=== PATIENT | female | born 1960 | race Caucasian/White ===

== ENCOUNTER 2019-06-21 19:07 | Emergency (ER) | payer BC ==
[2019-06-21] MEDS: LORAZEPAM 2 MG INJ IV (19:39)
[2019-06-21] MEDS: ONDANSETRON 4 MG INJ IV (19:39)
[2019-06-21] MEDS: KETOROLAC 15 MG INJ IV (19:39)
[2019-06-21] MEDS: SOD CHLORIDE 0.9% 1,000 ML IV (19:39)
[2019-06-21 19:52] LABS: ADD MAN DIFF? NO
[2019-06-21 19:57] LABS: BASOPHIL # 0.1 10^3/ul (0.0-0.1); BASOPHILS % 0.6 % (0.0-2.0); EOSINOPHILS # 0.2 10^3/ul (0.0-0.5); EOSINOPHILS % 2.1 % (0.0-7.0); HEMATOCRIT 34.7 % (37.0-47.0); HEMOGLOBIN 10.7 g/dl (12.0-16.0); LYMPHOCYTES % 29.7 % (15.0-51.0); MEAN CORPUSCULAR HEMOGLOBIN 27.6 pg (29.0-33.0); MEAN CORPUSCULAR HGB CONC 30.8 g/dl (32.0-37.0); MEAN CORPUSCULAR VOLUME 89.7 fl (82.0-101.0); MEAN PLATELET VOLUME 11.3 fl (7.4-10.4); MONOCYTE # 0.4 10^3/ul (0.3-0.9); MONOCYTES % 4.2 % (0.0-11.0); NEUTROPHIL # 6.4 10^3/ul (1.6-7.5); NEUTROPHILS % 62.9 % (39.0-77.0); PLATELET COUNT 399 10^3/UL (140-415); RED BLOOD COUNT 3.87 10^6/ul (4.20-5.40); RED CELL DISTRIBUTION WIDTH 16.1 % (11.5-14.5)
[2019-06-21 19:57] LABS: WHITE BLOOD COUNT 10.2 10^3/ul (4.8-10.8)
[2019-06-21 20:22] LABS: ANION GAP 13 (5-13); BLOOD UREA NITROGEN 13 mg/dl (7-20); CALCIUM 9.3 mg/dl (8.4-10.2); CARBON DIOXIDE 24 mmol/L (21-31); CHLORIDE 102 mmol/L (97-110); Estimated GFR > 60 mL/min (>60); GLUCOSE 197 mg/dl (70-220); POTASSIUM 4.4 mmol/L (3.5-5.1); SODIUM 139 mmol/L (135-144)
== END 2019-06-21 22:06 | disposition home or self-care (01) ==
LOC: E/R 22:06
DX: B37.3 Candidiasis of vulva and vagina (principal); F41.1 Generalized anxiety disorder; R11.2 Nausea with vomiting, unspecified; E11.9 Type 2 diabetes mellitus without complications; Z87.891 Personal history of nicotine dependence
CPT/HCPCS: 36415; 80048; 85025; 96374; 96375; 99284-25